=== PATIENT | male | born 1950 | race Caucasian/White ===

== ENCOUNTER 2016-12-16 03:37 | Emergency (ER) | payer MEDICARE, OTHER ==
[~2016-12-16] VITALS: Ht 167.6 cm; Wt 77.6 kg
--- NOTE | 2016-12-16 03:44 | NUR ---
PT BIBRA FROM HOME FOR HIGH BS PER EMS "GREATER THAN 500" PT AOX4 RR EVEN AND UNLABORED. NO SOB NOTED. NAD NOTED. NO NVD AT THIS TIME. PT ASYMPTOMATIC FOR HYPERGLYCEMIA. PT NOT DIAPHORETIC. PT GOWNED AND PLACED ON MONITOR WAITING FOR MD DUENAS. PER PT STATES "HE TOOK LANTUS 21 UNITS AT 9PM YESTERDAY, AND HAS STOPPED TALKING REGULAR INSULIN PER PCP"
--- NOTE | 2016-12-16 03:45 | NUR ---
ACCUCHECK RESULTS READS " HIGH" DR. CRONIN MADE AWARE.
[2016-12-16] MEDS ORDERED: IV SET PRIMARY 1 EA INFUS.SET MC ONE (03:53)
[2016-12-16] MEDS ORDERED: IV NS 0.9% 1,000 ML ONE (03:53)
[2016-12-16] MEDS ORDERED: INSULIN REGULAR, HUMAN 100 UNIT/ML 10 ML VIAL ONE (03:53)
--- NOTE | 2016-12-16 03:54 | NUR ---
IV STARTED ON LEFT FA 18G, BLOOD AND BLOOD CX COLLECTED AND SENT TO LAB.
--- NOTE | 2016-12-16 03:55 | NUR ---
XRAY AT BEDSIDE
--- NOTE | 2016-12-16 03:59 | NUR ---
WITNESSED 10 UNITS REGULAR INSULIN IVP GIVEN BY ANGELICA WAGNER RN.
[2016-12-16] MEDS ORDERED: INSULIN REGULAR, HUMAN 100 UNIT/ML 10 ML VIAL IV ONE (04:00)
[2016-12-16] MEDS ORDERED: IV NS 0.9% 1,000 ML BAG IV ONE (04:00)
[2016-12-16 04:02] LABS: BASOPHILS % (AUTO) 0.1 % (0.0-2.0); EOSINOPHILS # (AUTO) 0.1 /CMM (0.0-0.7); HEMATOCRIT 31 % (39-51); HEMOGLOBIN 10.4 g/dL (13.5-17.5); LYMPHOCYTES # (AUTO) 1.1 /CMM (0.8-4.8); MEAN CORPUSCULAR HEMOGLOBIN 29 PG (26.0-33.0); MEAN CORPUSCULAR HGB CONC 34 g/dl (31.0-36.0); MEAN CORPUSCULAR VOLUME 87 fL (80-96); MONOCYTES # (AUTO) 0.6 /CMM (0.1-1.30); MONOCYTES % (AUTO) 6.7 % (2.0-12.0); NEUTROPHILS # (AUTO) 7.2 /CMM (1.8-8.9); NEUTROPHILS % (AUTO) 80.2 % (43.0-81.0); PLATELET COUNT (AUTO) 181 /CMM (150-450); RDW COEFFICIENT OF VARIATION 12.6 (11.5-15.0); RED BLOOD CELL COUNT(AUTO) 3.56 MIL/uL (4.5-6.0); WHITE BLOOD COUNT (AUTO) 8.9 K/uL (4.3-11.0)
--- NOTE | 2016-12-16 04:16 | NUR ---
URINE COLLECTED. SENT TO LAB.
[2016-12-16 04:21] LABS: ALANINE AMINOTRANSFERASE 17 U/L (12-78); ALBUMIN 3.2 g/dL (3.4-5.0); ASPARTATE AMINOTRANSFERASE 14 U/L (15-37); BILIRUBIN,DIRECT 0.1 mg/dL (0.0-0.2); BILIRUBIN,TOTAL 0.4 mg/dL (0.2-1.0); CALCIUM, SERUM 7.9 mg/dL (8.5-10.1); CARBON DIOXIDE 30 mmol/L (21-32); CHLORIDE 88 mmol/L (98-107); CREATININE 3.9 mg/dL (0.6-1.3); POTASSIUM 3.9 mmol/L (3.5-5.1); SODIUM SERUM 127 mmol/L (136-145); TOTAL PROTEIN, SERUM 7.5 g/dL (6.4-8.2); UREA NITROGEN, BLOOD 66 mg/dL (7-18)
[2016-12-16 04:32] LABS: APPEARANCE,URINE CLEAR (CLEAR); BILIRUBIN,URINE NEGATIVE (NEGATIVE); BLOOD, URINE TRACE Ery/uL (NEGATIVE); KETONES,URINE NEGATIVE (NEGATIVE); LEUKOCYTE ESTERASE ,URINE NEGATIVE (NEGATIVE); NITRITE, URINE NEGATIVE (NEGATIVE); PH,URINE 6.5 (5.0-8.0); PROTEIN,URINE NEGATIVE (NEGATIVE); UGLUCOSE 3+ mg/dL (NEGATIVE); UROBILINOGEN,URINE 0.2 EU/dL (0.2)
[2016-12-16 04:36] LABS: COLOR,URINE STRAW (YELLOW)
[2016-12-16 04:38] LABS: BACTERIA,URINE None seen /HPF (None Seen); MUCUS,URINE Rare /LPF (None Seen); RBC,URINE 0-2 /HPF (0-2); SQUAMOUS EPITHELIAL CELL,UR None Seen /HPF (None Seen); WBC,URINE NONE SEEN /HPF (0-3)
[2016-12-16 05:09] LABS: ALKALINE PHOSPHATASE 129 U/L (46-116)
--- NOTE | 2016-12-16 05:10 | NUR ---
JERMAINE BS 369, DR. CRONIN MADE AWARE.
[2016-12-16 05:11] LABS: GLUCOSE 596 mg/dL (74-106)
--- NOTE | 2016-12-16 05:19 | NUR ---
DR. CRONIN AT BEDSIDE SPEAKING TO PT REGARDING RESULTS
--- NOTE | 2016-12-16 05:28 | NUR ---
IV removed. Catheter intact and site benign. Pressure and 4x4 applied to site. No bleeding noted. pt. ambulatory with a steady gait. Patient discharged to home in stable condition. Written and verbal after care instructions given. Patient verbalizes understanding of instruction.
[2016-12-16 05:29] VITALS: BP 120/69
== END 2016-12-16 05:29 | disposition home or self-care (01) ==
LOC: ER 03:38
DX: E11.65 Type 2 diabetes mellitus with hyperglycemia (principal); N17.9 Acute kidney failure, unspecified; E87.1 Hypo-osmolality and hyponatremia; Z79.4 Long term (current) use of insulin
CPT/HCPCS: 36415; 71010-TC; 80048-TC; 80076-TC; 81000-TC; 82010-TC; 82962-TC; 83605-TC; 85025-TC; 87040-TC; A4606; J1815; J7030; Z7610

== ENCOUNTER 2020-02-08 17:22 | Inpatient (IN) | payer MEDICARE, OTHER ==
[~2020-02-08] VITALS: Ht 167.6 cm; Wt 74.8 kg
[2020-02-08] MEDS ORDERED: ONDANSETRON HCL/PF 4 MG/2 ML VIAL IVP ONE (17:30)
[2020-02-08] MEDS ORDERED: IV NS 0.9% 500 ML BAG IV ONE (17:30)
[2020-02-08] MEDS ORDERED: ONDANSETRON HCL/PF 4 MG/2 ML VIAL ONE (17:32)
--- NOTE | 2020-02-08 17:50 | NUR ---
[id number], from home, c/o nausea vomiting and cough x 3 days. PT AAOX4, VSS. RR EVEN & UNLABORED. DENIES CP, SOB, WEAKNESS AT THIS TIME. PT SEEN & EVAL'D BY DR. RAMIREZ. MEDICATED ORDERED, PT CAITLYN WELL. WILL CONT TO MONITOR.
[2020-02-08 17:57] LABS: BASOPHILS # (AUTO) 0.1 /CMM (0.0-0.2); BASOPHILS % (AUTO) 0.8 % (0.0-2.0); EOSINOPHILS % (AUTO) 1.4 % (0.0-6.0); HEMATOCRIT 28 % (39-51); HEMOGLOBIN 9.2 g/dL (13.5-17.5); LYMPHOCYTES # (AUTO) 0.9 /CMM (0.8-4.8); LYMPHOCYTES % (AUTO) 12.2 % (20.0-44.0); MEAN CORPUSCULAR HGB CONC 33 g/dl (31.0-36.0); MEAN CORPUSCULAR VOLUME 91 fL (80-96); MONOCYTES # (AUTO) 0.7 /CMM (0.1-1.30); MONOCYTES % (AUTO) 8.7 % (2.0-12.0); NEUTROPHILS # (AUTO) 5.8 /CMM (1.8-8.9); NEUTROPHILS % (AUTO) 76.9 % (43.0-81.0); PLATELET COUNT (AUTO) 300 /CMM (150-450); RED BLOOD CELL COUNT(AUTO) 3.09 MIL/uL (4.5-6.0); WHITE BLOOD COUNT (AUTO) 7.5 K/uL (4.3-11.0)
[2020-02-08 18:05] LABS: CARBON DIOXIDE 16 mmol/L (21-32); CHLORIDE 107 mmol/L (98-107); CREATININE 6.9 mg/dL (0.6-1.3); GLUCOSE 226 mg/dL (74-106); POTASSIUM 4.7 mmol/L (3.5-5.1); SODIUM SERUM 141 mmol/L (136-145); UREA NITROGEN, BLOOD 64 mg/dL (7-18)
[2020-02-08 18:28] LABS: ALANINE AMINOTRANSFERASE 23 U/L (12-78); ALBUMIN 3.6 g/dL (3.4-5.0); ALKALINE PHOSPHATASE 73 U/L (46-116); ASPARTATE AMINOTRANSFERASE 13 U/L (15-37); BILIRUBIN,DIRECT 0.1 mg/dL (0.0-0.2); BILIRUBIN,TOTAL 0.4 mg/dL (0.2-1.0); LIPASE 136 U/L (73-393)
[2020-02-08] MEDS ORDERED: NATE60TA4 PO (19:02)
[2020-02-08] MEDS ORDERED: CALC0.253 PO (19:02)
[2020-02-08] MEDS ORDERED: LABE200T5 PO (19:02)
--- NOTE | 2020-02-08 19:21 | NUR ---
COVID SWAB SENT TO LAB
--- NOTE | 2020-02-08 20:43 | NUR ---
PT AAOX4, VSS. DENIES CP, SOB, DIZZINESS, N/V AT THIS TIME. WILL CONT TO MONITOR.
[2020-02-08 21:30] VITALS: BP 164/81
--- NOTE | 2020-02-08 21:40 | NUR ---
MISSION SYSTEMS ENGINEER ADMITTING NOTES ADMITTED PATIENT TRANSPORTED FROM ER VIA GURNEY, NO SIGNS OF ACUTE CARDIAC OR RESPIRATORY DISTRESS NOTED. ADMISSION, PHYSICAL ASSESSMENT INITIATED. PATIENT, ABLE TO WALK TO BATHROOM WITH STEADY GAIT, ORIENTED X 2-3 WITH EPISODE OF CONFUSION, UNABLE TO REMEMBER EXACT DOSE AND NAME OF HOME MEDICATIONS HE IS CURRENTLY TAKING. DENIES ANY PAIN OR DISCOMFORT, NO NAUSEA AND VOMITTING NOTED. PATIENT IS REQUESTING TO SLEEP AND REST AT THIS TIME, SKIN ASSESSMENT DONE, NOTED WITH SCAB, PHOTO TAKEN AND PLACED IN THE PATIENT'S CHART. TELE MONITOR READS SINUS 60s, IV ACCESS ON HIS RIGHT AC G#20 INTACT AND PATEN ORIENTED TO ROOM AND THE USE OF CALL LIGHT. ALL NEEDS ANTICIPATED. WILL CONTINUE TO MONITOR. AWAITING FOR MD ORDER.
[2020-02-08] MEDS ORDERED: HYDROCODONE/APAP 5/325MG TABLET PO PRN (22:30)
[2020-02-08] MEDS ORDERED: ACETAMINOPHEN 325 MG TABLET PO PRN (22:30)
[2020-02-08] MEDS ORDERED: DEXTROSE 50%-WATER 50 ML DISP.SYRIN IV PRN (22:30)
[2020-02-08] MEDS ORDERED: Z GUARD REMEDY 2 OZ OINT TP PRN (22:30)
[2020-02-08] MEDS ORDERED: ZOLPIDEM TARTRATE 5 MG TABLET PO PRN (22:30)
[2020-02-08] MEDS: IV NS 0.9% 1,000 ML IV PRN (23:52)
[2020-02-09] VITALS (7 sets, daily range): BP systolic 121–154; BP diastolic 61–85
--- NOTE | 2020-02-09 06:07 | NUR ---
HOT WIRE GLASS TUBE CUTTER NOTES ABLE TO REST AND SLEPT AT INTERVALS, TELE MONITOR READS SINUS HARSH 47 AT THIS TIME, PATIENT DENIES DISCOMFORT. NO SIGNS OF RESPIRATORY DISTRESS, SATING 97% ON ROOM AIR. SAFETY MEASURES IN PLACE, ASPIRATION PRECAUTION EMPHASIZED. WILL ENDORSE TO AM NURSE FOR CONTINUITY OF CARE.
[2020-02-09 06:43] LABS: BASOPHILS # (AUTO) 0.1 /CMM (0.0-0.2); BASOPHILS % (AUTO) 0.9 % (0.0-2.0); EOSINOPHILS % (AUTO) 2.1 % (0.0-6.0); HEMATOCRIT 25 % (39-51); HEMOGLOBIN 8.4 g/dL (13.5-17.5); LYMPHOCYTES % (AUTO) 16.9 % (20.0-44.0); MEAN CORPUSCULAR HGB CONC 33 g/dl (31.0-36.0); MEAN CORPUSCULAR VOLUME 91 fL (80-96); MONOCYTES # (AUTO) 0.7 /CMM (0.1-1.30); MONOCYTES % (AUTO) 12.4 % (2.0-12.0); NEUTROPHILS % (AUTO) 67.7 % (43.0-81.0); PLATELET COUNT (AUTO) 243 /CMM (150-450); RED BLOOD CELL COUNT(AUTO) 2.78 MIL/uL (4.5-6.0)
[2020-02-09 06:49] LABS: CHOLESTEROL 117 mg/dL (<200); HDL CHOLESTEROL 29 mg/dL (40-60); LDL 61 mg/dL (0-99); THYROID STIMULATING HORMONE 0.724 uIU/mL (0.358-3.74); TRIGLYCERIDES 139 mg/dL (30-150)
[2020-02-09 06:51] LABS: ALANINE AMINOTRANSFERASE 19 U/L (12-78); ALBUMIN 2.7 g/dL (3.4-5.0); ALKALINE PHOSPHATASE 60 U/L (46-116); ASPARTATE AMINOTRANSFERASE 11 U/L (15-37); BILIRUBIN,TOTAL 0.3 mg/dL (0.2-1.0); CALCIUM, SERUM 9.1 mg/dL (8.5-10.1); CARBON DIOXIDE 19 mmol/L (21-32); CHLORIDE 109 mmol/L (98-107); CREATININE 6.4 mg/dL (0.6-1.3); GLUCOSE 158 mg/dL (74-106); MAGNESIUM 2.2 mg/dL (1.8-2.4); POTASSIUM 4.4 mmol/L (3.5-5.1); SODIUM SERUM 142 mmol/L (136-145); TOTAL PROTEIN, SERUM 6.4 g/dL (6.4-8.2); UREA NITROGEN, BLOOD 58 mg/dL (7-18)
[2020-02-09] MEDS: NATEGLINIDE 60 MG TABLET PO SCH ×3 (07:05→17:12)
[2020-02-09] MEDS: BLOOD SUGAR DIAGNOSTIC 1 EACH STRIP IN SCH ×4 (07:07→21:57)
--- NOTE | 2020-02-09 08:00 | NUR ---
MS RN NOTES PATIENT IN BED RESTING. ALERT, ORIENTED X2. PERIPHERAL IV INTACT PATENT. SAFETY MEASURES IN PLACE. WILL CONTINUE TO MONITOR.
[2020-02-09] MEDS: CALCITRIOL 0.25 MCG CAPSULE PO SCH ×2 (08:40→17:12)
[2020-02-09] MEDS: HEPARIN SODIUM, PORCINE 5000 UNITS/1 ML VIAL SQ SCH ×2 (08:41→21:21)
[2020-02-09] MEDS: LABETALOL HCL (100MG) 100 MG TABLET PO SCH ×2 (08:48→17:00)
[2020-02-09 10:52] LABS: APPEARANCE,URINE CLEAR (CLEAR); BILIRUBIN,URINE NEGATIVE (NEGATIVE); BLOOD, URINE MODERATE Ery/uL (NEGATIVE); COLOR,URINE YELLOW (YELLOW); KETONES,URINE NEGATIVE (NEGATIVE); LEUKOCYTE ESTERASE ,URINE NEGATIVE (NEGATIVE); NITRITE, URINE NEGATIVE (NEGATIVE); PH,URINE 5.5 (5.0-8.0); PROTEIN,URINE 100 mg/dl (NEGATIVE); UGLUCOSE 500 MG/DL mg/dL (NEGATIVE); UROBILINOGEN,URINE 0.2 EU/dL (0.2)
[2020-02-09 11:27] LABS: CREATININE, URINE 69.8 MG/DL (30.0-125.0); URINE TOTAL PROTEIN 240.3 mg/dL (0-11.9)
[2020-02-09] MEDS: INSULIN REGULAR, HUMAN 100 UNIT/ML 3 ML VIAL SQ PRN ×3 (11:58→21:58)
[2020-02-09 12:37] LABS: RBC,URINE 0-2 /HPF (0-2); WBC,URINE 0-2 /HPF (0-3)
[2020-02-09 12:38] LABS: BACTERIA,URINE Rare /HPF (None Seen); SQUAMOUS EPITHELIAL CELL,UR Rare /HPF (None Seen)
[2020-02-09 13:02] LABS: EOSINOPHIL,URINE None Seen
[2020-02-09] MEDS: IV NS 0.9% 1,000 ML IV PRN (17:32)
--- NOTE | 2020-02-09 19:31 | NUR ---
MS RN NOTES PATIENT IN BED RESTING NO SOB OR ACUTE DISTRESS NOTED. ALL DUE MEDICATIONS ADMINISTERED. ALL NEED MET. ENDORSED CARE TO PM SHIFT. NO ACUTE CHANGES NOTED DURING AM SHIFT.
--- NOTE | 2020-02-09 19:50 | NUR ---
MS RN NOTES RECEIVED PATIENT IN BED RESTING. ALERT, ORIENTED X2. PERIPHERAL IV INTACT PATENT. SAFETY MEASURES IN PLACE. CALL LIGHT WITHIN EASY REACH. ALL NEEDS ANTICIPATED. WILL CONTINUE TO MONITOR ACCORDINGLY.
[2020-02-09] MEDS: INSULIN GLARGINE, 100 UNIT/ML CARTRIDGE SQ SCH (21:59)
--- NOTE | 2020-02-10 06:17 | NUR ---
MS RN NOTES ALL NEEDS ATTENDED AND MET, ABLE TO REST AND SLEPT AT INTERVALS, IV ACCESS INTACT AND PATENT. SAFETY MEASURES IN PLACE, DENIES ANY PAIN OR DISCOMFORT. WILL ENDORSE TO AM NURSE FOR CONTINUITY OF CARE.
[2020-02-10 06:25] LABS: BASOPHILS # (AUTO) 0.1 /CMM (0.0-0.2); BASOPHILS % (AUTO) 0.8 % (0.0-2.0); EOSINOPHILS % (AUTO) 2.4 % (0.0-6.0); HEMATOCRIT 26 % (39-51); HEMOGLOBIN 8.5 g/dL (13.5-17.5); LYMPHOCYTES % (AUTO) 14.3 % (20.0-44.0); MEAN CORPUSCULAR HGB CONC 33 g/dl (31.0-36.0); MEAN CORPUSCULAR VOLUME 91 fL (80-96); MONOCYTES # (AUTO) 0.6 /CMM (0.1-1.30); MONOCYTES % (AUTO) 9.5 % (2.0-12.0); NEUTROPHILS # (AUTO) 4.9 /CMM (1.8-8.9); PLATELET COUNT (AUTO) 255 /CMM (150-450); RED BLOOD CELL COUNT(AUTO) 2.85 MIL/uL (4.5-6.0); WHITE BLOOD COUNT (AUTO) 6.7 K/uL (4.3-11.0)
[2020-02-10 06:57] LABS: CREATINE KINASE, TOTAL 202 U/L (39-308); FERRITIN 39 ng/mL (8-388)
[2020-02-10 07:22] LABS: ALANINE AMINOTRANSFERASE 16 U/L (12-78); ALBUMIN 2.6 g/dL (3.4-5.0); ALKALINE PHOSPHATASE 62 U/L (46-116); ASPARTATE AMINOTRANSFERASE 14 U/L (15-37); BILIRUBIN,TOTAL 0.2 mg/dL (0.2-1.0); CALCIUM, SERUM 8.9 mg/dL (8.5-10.1); CARBON DIOXIDE 19 mmol/L (21-32); CHLORIDE 108 mmol/L (98-107); CREATININE 5.7 mg/dL (0.6-1.3); GLUCOSE 138 mg/dL (74-106); MAGNESIUM 2.1 mg/dL (1.8-2.4); PHOSPHORUS 5.6 mg/dL (2.5-4.9); POTASSIUM 4.4 mmol/L (3.5-5.1); SODIUM SERUM 141 mmol/L (136-145); TOTAL PROTEIN, SERUM 6.3 g/dL (6.4-8.2); UREA NITROGEN, BLOOD 57 mg/dL (7-18)
[2020-02-10] MEDS: NATEGLINIDE 60 MG TABLET PO SCH ×3 (07:26→16:55)
[2020-02-10] MEDS: BLOOD SUGAR DIAGNOSTIC 1 EACH STRIP IN SCH ×4 (07:26→22:03)
[2020-02-10 08:00] VITALS: BP 146/69
--- NOTE | 2020-02-10 08:00 | NUR ---
MS/RN Opening note Patient received from cage shift manager. A/O X2, vital signs within normal range for patient, denies any pain or discomfort at this time. IV fluids infusing at 75ml/hr via left forearm 22g, no sings of infiltration seen. Bed in low setting, side rails X3 in upright position. Call light within reach, will continue to monitor and ensure safety.
[2020-02-10] MEDS: CALCITRIOL 0.25 MCG CAPSULE PO SCH ×2 (08:30→16:55)
[2020-02-10] MEDS: LABETALOL HCL (100MG) 100 MG TABLET PO SCH ×2 (08:31→16:56)
[2020-02-10] MEDS: HEPARIN SODIUM, PORCINE 5000 UNITS/1 ML VIAL SQ SCH ×2 (08:34→21:25)
[2020-02-10 09:30] LABS: IRON, SERUM 27 ug/dl (50-175); TOTAL IRON BINDING CAPACITY 292 ug/dl (250-450)
[2020-02-10] MEDS: IV NS 0.9% 1,000 ML IV PRN (09:46)
--- NOTE | 2020-02-10 09:52 | NUR ---
MS/RN S/B Samuel Yeboah MONOGRAM OPERATOR Seen by MONOGRAM OPERATOR - continue with fluids at 75ml/hr and current mediations. Made aware that BUN and creatinine are elevated, stated that Dr Barillas would see patient.
[2020-02-10] MEDS: INSULIN REGULAR, HUMAN 100 UNIT/ML 3 ML VIAL SQ PRN (11:28)
--- NOTE | 2020-02-10 12:43 | NUR ---
MS/RN Blood glucose Blood sugar at noon 231, per sliding scale, four units regular insulin to be administered.
--- NOTE | 2020-02-10 15:20 | NUR ---
MS/RN S/B Dr Barillas Seen by Dr Barillas - order written for patient ot start renagel TID due to high phosphorus level (5.6)
[2020-02-10 16:00] VITALS: BP 149/75
[2020-02-10] MEDS: SEVELAMER CARBONATE 800 MG TABLET PO SCH (17:00)
--- NOTE | 2020-02-10 18:02 | NUR ---
MS/RN End note Patient remains in stable condition, all needs meet. Latest blood sugar 123, no coverage needed. Continues to deny any pain or discomfort. IV fluids infusing at 75ml/hr via left forearm 22g, no signs of infiltration. Will endorse to manufacturing supervisor 2nd shift.
[2020-02-10 18:26] VITALS: BP 149/75
[2020-02-10 20:00] VITALS: BP 149/73
[2020-02-10 20:50] VITALS: BP 149/73
[2020-02-10] MEDS: INSULIN GLARGINE, 100 UNIT/ML CARTRIDGE SQ SCH (22:06)
[2020-02-11] MEDS: ONDANSETRON HCL/PF 4 MG/2 ML VIAL IVP PRN ×2 (01:47→03:12)
[2020-02-11 01:50] VITALS: BP 161/72
[2020-02-11] MEDS ORDERED: MAG HYDROX/AL HYDROX/SIMETH 30 ML UDC PO PRN (02:00)
[2020-02-11] MEDS ORDERED: CLONIDINE HCL 0.1 MG TABLET PO PRN (02:00)
--- NOTE | 2020-02-11 02:10 | NUR ---
MS RN NOTES PATIENT COMPLAINED OF UPSET STOMACH AND HYPER ACIDITY, INFORMED AND OBTAINED ORDER FROM DR MILLER, PRN CLONIDINE 0.1 MG TAB FOR SBP>160 AND MAALOX GIVEN PRN ORDER. WILL CONTINUE TO MONITOR PATIENT.
[2020-02-11 04:01] VITALS: BP 121/54
[2020-02-11] MEDS: IV NS 0.9% 1,000 ML IV PRN (04:28)
[2020-02-11 05:07] LABS: PTH, INTACT 10 pg/mL (15-65)
[2020-02-11 06:25] LABS: BASOPHILS % (AUTO) 0.3 % (0.0-2.0); EOSINOPHILS % (AUTO) 1.9 % (0.0-6.0); HEMATOCRIT 25 % (39-51); HEMOGLOBIN 8.4 g/dL (13.5-17.5); LYMPHOCYTES # (AUTO) 1.1 /CMM (0.8-4.8); LYMPHOCYTES % (AUTO) 12.5 % (20.0-44.0); MEAN CORPUSCULAR HGB CONC 34 g/dl (31.0-36.0); MEAN CORPUSCULAR VOLUME 90 fL (80-96); MONOCYTES # (AUTO) 0.7 /CMM (0.1-1.30); MONOCYTES % (AUTO) 8.4 % (2.0-12.0); NEUTROPHILS # (AUTO) 6.5 /CMM (1.8-8.9); NEUTROPHILS % (AUTO) 76.9 % (43.0-81.0); PLATELET COUNT (AUTO) 241 /CMM (150-450); RED BLOOD CELL COUNT(AUTO) 2.81 MIL/uL (4.5-6.0); WHITE BLOOD COUNT (AUTO) 8.5 K/uL (4.3-11.0)
[2020-02-11 06:35] LABS: CALCIUM, SERUM 8.5 mg/dL (8.5-10.1); CARBON DIOXIDE 19 mmol/L (21-32); CHLORIDE 107 mmol/L (98-107); CREATININE 5.4 mg/dL (0.6-1.3); GLUCOSE 117 mg/dL (74-106); SODIUM SERUM 139 mmol/L (136-145); UREA NITROGEN, BLOOD 52 mg/dL (7-18)
[2020-02-11] MEDS: NATEGLINIDE 60 MG TABLET PO SCH ×3 (06:37→17:35)
--- NOTE | 2020-02-11 06:40 | NUR ---
MS RN NOTES ALL NEEDS ATTENDED AND MET, ABLE TO REST AND SLEPT AT INTERVALS, IV ACCESS INTACT AND PATENT. SAFETY MEASURES IN PLACE, DENIES ANY PAIN OR DISCOMFORT AT THIS TIME. WILL ENDORSE TO AM NURSE FOR CONTINUITY OF CARE.
[2020-02-11] MEDS: BLOOD SUGAR DIAGNOSTIC 1 EACH STRIP IN SCH ×3 (07:33→16:57)
--- NOTE | 2020-02-11 07:34 | NUR ---
MS RN OPENING NOTES RECEIVED PATIENT IN BED, A/O X2. PATIENT BREATHING ON ROOM AIR; BREATHING IS EVEN AND UNLABORED; NO SOB PRESENT AT THIS TIME. NO COMPLAINS OF PAIN. LFA IV ACCESS G # 22 INFUSING NS @ 75 MLS/HR. SAFETY PRECAUTIONS IN PLACE; BED IN LOW POSITION AND LOCKED, RAILS UP X2, CALL LIGHT WITHIN REACH. WILL CONTINUE TO MONITOR PATIENT.
[2020-02-11 08:00] VITALS: BP 152/82
[2020-02-11] MEDS: SEVELAMER CARBONATE 800 MG TABLET PO SCH ×3 (08:17→17:35)
[2020-02-11] MEDS: CALCITRIOL 0.25 MCG CAPSULE PO SCH ×2 (08:17→16:26)
[2020-02-11] MEDS: LABETALOL HCL (100MG) 100 MG TABLET PO SCH ×2 (08:17→16:26)
[2020-02-11] MEDS: HEPARIN SODIUM, PORCINE 5000 UNITS/1 ML VIAL SQ SCH (08:19)
[2020-02-11] MEDS: INSULIN REGULAR, HUMAN 100 UNIT/ML 3 ML VIAL SQ PRN (11:21)
[2020-02-11] MEDS ORDERED: SEVE800T7 PO (11:56)
[2020-02-11] MEDS ORDERED: INSU100V28 SQ (11:56)
[2020-02-11] MEDS ORDERED: Blood Sugar Diagnostic IN (11:56)
[2020-02-11] MEDS ORDERED: Insulin Glargine,Hum SQ (11:56)
[2020-02-11 15:07] LABS: *SPE A/G RATIO 0.9 (0.7-1.7); *SPE ALBUMIN 2.6 g/dL (2.9-4.4); *SPE ALPHA-1-GLOBULIN 0.2 g/dL (0.0-0.4); *SPE ALPHA-2-GLOBULIN 0.9 g/dL (0.4-1.0); *SPE BETA GLOBULIN 0.9 g/dL (0.7-1.3); *SPE M-SPIKE Not Observed g/dL (Not Observed); *SPEGAMMA GLOBULIN 1.1 g/dL (0.4-1.8)
[2020-02-11 16:00] VITALS: BP 135/81
--- NOTE | 2020-02-11 18:45 | NUR ---
MS RN CLOSING NOTES PATIENT IN BED, A/O X3, AWAITING 1900 PICK-UP (DISCHARGED). PATIENT BREATHING ON ROOM AIR; BREATHING IS EVEN AND UNLABORED; NO SOB PRESENT AT THIS TIME. NO COMPLAINS OF PAIN. SAFETY PRECAUTIONS IN PLACE; BED IN LOW POSITION AND LOCKED, RAILS UP X2, CALL LIGHT WITHIN REACH. WILL ENDORSE TO PAINTER INTERIOR FINISH NURSE.
--- NOTE | 2020-02-11 19:30 | NUR ---
MS RN NOTES RECEIVED RESTING COMFORTABLY ON BED WAITING FOR AMBULANCE TO TRANSPORT PATIENT,DISCHARGE TO HOME.VITAL SIGNS WITH IN NORMAL LIMITS,O2 SAT 100% ON ROOM AIR.TO REMOVE SALINE LOCK LEFT ARM UPON PLASTICS PRODUCTION MACHINE OPERATOR.
[2020-02-11 20:00] VITALS: BP 146/63
--- NOTE | 2020-02-11 20:30 | NUR ---
MS RN NOTES FEELING UPSET,HE SAID HES BEEN WAITING TO BE UNDERGROUND HEAVY EQUIPMENT OPERATOR BY AMBULANCE FOR 2-3 HOURS.CALLED [facility] AND WILL UNDERGROUND HEAVY EQUIPMENT OPERATOR PATIENT IN 15-30 MINUTES.
--- NOTE | 2020-02-11 20:53 | NUR ---
MS RN NOTES PATIENT PICKED UP BY [facility] TO HOME IN STABLE CONDITION.
== END 2020-02-11 20:55 | disposition home or self-care (01) | DRG 683 ==
LOC: ER 17:34 → TELE 20:22 → MED 02-09 11:36
PROVIDERS: ADMIT Hospitalist; ATTEND Nurse Practitioner Acute Care
DX: N17.0 Acute kidney failure with tubular necrosis (principal); E44.0 Moderate protein-calorie malnutrition; I13.10 Hypertensive heart and chronic kidney disease without heart failure, with stage 1 through stage 4 chronic kidney disease, or unspecified chronic kidney disease; E11.22 Type 2 diabetes mellitus with diabetic chronic kidney disease; E83.52 Hypercalcemia; N18.9 Chronic kidney disease, unspecified; E11.65 Type 2 diabetes mellitus with hyperglycemia; E83.39 Other disorders of phosphorus metabolism; E78.5 Hyperlipidemia, unspecified; Z79.899 Other long term (current) drug therapy; D63.8 Anemia in other chronic diseases classified elsewhere; N25.0 Renal osteodystrophy; W18.30XA Fall on same level, unspecified, initial encounter; Y93.K1 Activity, walking an animal; Y92.9 Unspecified place or not applicable; I70.0 Atherosclerosis of aorta; Z79.4 Long term (current) use of insulin; K40.90 Unilateral inguinal hernia, without obstruction or gangrene, not specified as recurrent
CPT/HCPCS: 36415; 71045-TC; 76770-TC; 80048-TC; 80053-TC; 80061-TC; 80076-TC; 81000-TC; 82550-TC; 82570-TC; 82728-TC; 82962-TC; 83540-TC; 83690-TC; 83735-TC; 83970; 84100-TC; 84155; 84155-TC; 84165; 84300-TC; 84443-TC; 84484-TC; 85025-TC; 85730-TC; 87081-TC; C9803-CS; G0378; J1644; J1815; J2405; J7030; J7040

== ENCOUNTER 2021-06-28 00:25 | Inpatient (IN) | payer MEDICARE, OTHER ==
[~2021-06-28] VITALS: Ht 167.6 cm; Wt 65.8 kg
[~2021-06-28 00:25] MED LIST: Blood Sugar Diagnostic IN; CALC0.253 PO; INSU100V28 SQ; Insulin Glargine,Hum SQ; LABE200T5 PO; NATE60TA4 PO; SEVE800T7 PO
--- NOTE | 2021-06-28 00:55 | NUR ---
Note marie in EDM - 06/28/21 at 0508 by LELO ELAYNE FROM [facility]. TO ER BED 8. AAOX2. NOT IN RESP DISTRESS BUT SATTING @ 94% ON RA.
--- NOTE | 2021-06-28 00:55 | NUR ---
ELAYNE FROM [facility]. TO ER BED 8. AAOX2. NOT IN RESP DISTRESS BUT SATTING @ 94% ON RA. NOTED EXCERTIONAL DYSNEA. PT WAS SENT BECAUSE HE HAVENT BEEN DIALIZED FOR AN UNKNOWN AMOUNT OF DAYS BECAUSE HE IS COVID POSITIVE AND HAS BEEN ON ISOLATION. PT IS POSITIVE SINCE 06/24/21. PT HAVE HD ACCESS ON R UPPER CHEST. PT IS PLACED ON O2 VIA NC @ 4LPM. AT BEDSIDE. AWAITING FOR ORDERS.
--- NOTE | 2021-06-28 01:10 | NUR ---
CALLED FACILITY AND SPOKE WITH NURSE MINISTERIO. DOES NOT KNOW HOW LONG THE PATIENT HAS BEEN DIALYSED. GAVE ME ANOTHER NUMBER TO CALL BUT NO ANSWER.
[2021-06-28 01:52] LABS: BASOPHILS % (AUTO) 0.6 % (0.0-2.0); EOSINOPHILS % (AUTO) 1.8 % (0.0-6.0); HEMATOCRIT 24 % (39-51); LYMPHOCYTES # (AUTO) 0.6 K/uL (0.8-4.8); LYMPHOCYTES % (AUTO) 11.8 % (20.0-44.0); MEAN CORPUSCULAR HGB CONC 34 g/dl (31.0-36.0); MEAN CORPUSCULAR VOLUME 90 fL (80-96); MONOCYTES # (AUTO) 0.6 K/uL (0.1-1.30); MONOCYTES % (AUTO) 11.2 % (2.0-12.0); NEUTROPHILS # (AUTO) 3.7 K/uL (1.8-8.9); NEUTROPHILS % (AUTO) 74.6 % (43.0-81.0); PLATELET COUNT (AUTO) 321 K/uL (150-450); RED BLOOD CELL COUNT(AUTO) 2.61 MIL/uL (4.5-6.0); WHITE BLOOD COUNT (AUTO) 4.9 K/uL (4.3-11.0)
[2021-06-28 02:03] LABS: CALCIUM, SERUM 7.5 mg/dL (8.5-10.1); CARBON DIOXIDE 21 mmol/L (21-32); CHLORIDE 99 mmol/L (98-107); GLUCOSE 144 mg/dL (74-106); POTASSIUM 5.9 mmol/L (3.5-5.1); SODIUM SERUM 132 mmol/L (136-145)
[2021-06-28 02:21] LABS: CREATININE 11.1 mg/dL (0.6-1.3); UREA NITROGEN, BLOOD 94 mg/dL (7-18)
[2021-06-28] MEDS ORDERED: INSULIN REGULAR, HUMAN 100 UNIT/ML 10 ML VIAL IV ONE (02:30)
[2021-06-28] MEDS ORDERED: CALCIUM CHLORIDE 1,000 MG/10 ML DISP.SYRIN IV ONE (02:30)
[2021-06-28] MEDS ORDERED: DEXTROSE 50%-WATER 50 ML DISP.SYRIN IV ONE (02:30)
[2021-06-28] MEDS ORDERED: ALBUTEROL FS 2.5 MG/3 ML VIAL.NEB NEB ONE (02:30)
[2021-06-28] MEDS ORDERED: ONDANSETRON HCL/PF 4 MG/2 ML VIAL IVP PRN (04:30)
[2021-06-28] MEDS ORDERED: MAG HYDROX/AL HYDROX/SIMETH 30 ML UDC PO PRN (04:30)
[2021-06-28] MEDS ORDERED: SODIUM POLYSTYRENE SULFONATE 15 G/60 ML BOTTLE PO ONE (04:30)
[2021-06-28] MEDS ORDERED: Z GUARD REMEDY 4 OZ OINT TP PRN (04:30)
[2021-06-28] MEDS ORDERED: MAGNESIUM HYDROXIDE 30 ML UDC PO PRN (04:30)
--- NOTE | 2021-06-28 05:04 | NUR ---
REPORT GIVEN KALEB MASON FOR NATHALY
--- NOTE | 2021-06-28 05:11 | NUR ---
PT IS BEING TRANSPORTED TO UNIT ON [facility] WITH EMT AND RN AT [facility] WITH ACLS PROTOCOL. NAD NOTED.
[2021-06-28 05:30] VITALS: BP 182/93
--- NOTE | 2021-06-28 05:30 | NUR ---
TELE/RN ADMITTING NOTE RECEIVED REPORT FROM CHALKER SOLES ALEJA. PATIENT ARRIVED TO UNIT VIA GURNEY AND 2 STAFF MEMBERS. PATIENT IS BEING ADMITTED FOR COVID AND HYPERKALEMIA. PMHX INCLUDES DM, ESRD ON HD, HTN, CHF AND PNA. PATIENT IS ALERT AND ORIENTED X 3-4. PRIMARILY SETS[place] SPEAKING BUT UNDERSTANDS SOME ROMANIAN. ABLE TO MAKE NEEDS KNOWN. DENIES PAIN AT THIS TIME. CONTINUES ON O2 4L VIA NC WITH NO S/SX OF RESPIRATORY DISTRESS NOTED. IV ACCESS TO LEFT AC #18G INTACT, PATENT AND SALINE LOCKED. RIGHT CHEST WALL HD CATH IN PLACE WITH DRESSING C,D,I. CONTINUES ON RENAL STANDING DIET WITH NO S/SX OF ASPIRATION NOTED. SKIN CHECK PERFORMED ON ADMISSION WITH SCAB NOTED TO RIGHT KNEE. PICTURE TAKEN AND PLACED IN CHART. PATIENT STATES HE IS VACCINATED AGAINST COVID X 2 DOSES OF PFIZER. PATIENT IS AMBULATORY WITH ASSIST. PATIENT ORIENTED TO ROOM, CALL LIGHT AND UNIT. CALL LIGHT WITHIN REACH. ASPIRATION, FALL AND SAFETY PRECAUTIONS MAINTAINED. WILL CONTINUE TO MONITOR.
[2021-06-28] MEDS ORDERED: DEXTROSE 50%-WATER 50 ML DISP.SYRIN IV PRN (06:00)
--- NOTE | 2021-06-28 06:50 | NUR ---
TELE/RN CLOSING NOTE PATIENT CURRENTLY SITTING AT SIDE OF BED. ALERT AND ORIENTED X 4. ABLE TO MAKE NEEDS KNOWN. DENIES PAIN AT THIS TIME. CONTINUES ON O2 4L VIA NC WITH NO S/SX OF RESPIRATORY DISTRESS NOTED. IV ACCESS TO LEFT AC #18G INTACT, PATENT AND SALINE LOCKED. RIGHT CHEST WALL HD CATH IN PLACE. CONTINUES ON RENAL STANDARD DIET WITH NO S/SX OF RESPIRATORY DISTRESS NOTED. CONSENT SIGNED FOR HEMODIALYSIS AND PLACED IN CHART. TELE MONITOR IN PLACE READING SR HR 80. CALL LIGHT WITHIN REACH. ASPIRATION, FALL AND SAFETY PRECAUTIONS MAINTAINED. WILL CONTINUE TO MONITOR.
[2021-06-28] MEDS: BLOOD SUGAR DIAGNOSTIC 1 EACH STRIP IN SCH ×4 (06:53→21:11)
--- NOTE | 2021-06-28 07:39 | NUR ---
RN OPENING NOTES PATIENT AWAKE IN BED RESTING, A/O X3-4. NO S/S OF PAIN NOTED AT THIS TIME. ON 4L OXYGEN VIA NC, NO DISTRESS OR SHORTNESS OF BREATH NOTED. IV ACCESS LAC #18G, INTACT, PATENT AND FLUSHING WELL. FALL AND SAFETY MEASURES IN PLACE, BED ALARM ON, BED IN LOW AND LOCK POSITION, CALL LIGHT AND TABLE WITHIN EASY REACH, SIDE RAILS UP X2. WILL CONTINUE TO MONITOR.
[2021-06-28 08:00] VITALS: BP 162/81
[2021-06-28] MEDS ORDERED: hydrALAZINE HCL IV 20 MG VIAL IV PRN (08:30)
[2021-06-28] MEDS ORDERED: DEXAMETHASONE SOD PHOSPHATE 10 MG/ML VIAL IV SCH (09:00)
[2021-06-28] MEDS ORDERED: CALCITRIOL 0.25 MCG CAPSULE PO SCH (09:00)
[2021-06-28] MEDS: PANTOPRAZOLE 40 MG TABLET.DR PO SCH (09:10)
[2021-06-28] MEDS: FLUTICASONE/VILANTEROL 1 EACH BLST.W.DEV IH SCH (09:14)
[2021-06-28] MEDS: SEVELAMER CARBONATE 800 MG TABLET PO SCH ×2 (12:21→17:17)
[2021-06-28] MEDS: AMLODIPINE BESYLATE 10 MG TABLET PO SCH (12:21)
[2021-06-28] MEDS ORDERED: ACET-868 PO (12:22)
[2021-06-28] MEDS ORDERED: BISA10SU11 RC (12:22)
[2021-06-28] MEDS ORDERED: TYL2T PO (12:22)
[2021-06-28] MEDS ORDERED: CHOL100043 PO (12:22)
[2021-06-28] MEDS ORDERED: LOSA50TA39 PO (12:22)
[2021-06-28] MEDS ORDERED: CALC500T63 PO (12:22)
[2021-06-28] MEDS ORDERED: NA P133E RC (12:22)
[2021-06-28] MEDS ORDERED: SEVE800T8 PO (12:22)
[2021-06-28] MEDS ORDERED: AMLO-213 PO (12:22)
[2021-06-28] MEDS ORDERED: MAGN400O6 PO (12:22)
[2021-06-28] MEDS ORDERED: HEPA50008 SQ (12:22)
[2021-06-28] MEDS: LABETALOL HCL (100MG) 100 MG TABLET PO SCH ×2 (13:23→21:11)
--- NOTE | 2021-06-28 13:30 | NUR ---
RN NOTES PATIENT HAD DIALYSIS TODAY FROM 9:00 T0 12:00, 3 HOURS, TOLERATED WELL, 2L OUTPUT. PATIENT MORNING MEDICATIONS WAS GIVEN LATE DUE TO DIALYSIS. DOCTOR SAID TO ORDER CMP POST DIALYSIS AND GIVE KAYEXELATE IF NEED AFTER RECEIVING LAB RESULTS.
[2021-06-28 14:11] LABS: BILIRUBIN,DIRECT 0.1 mg/dL (0.0-0.2); BILIRUBIN,TOTAL 0.3 mg/dL (0.2-1.0); TOTAL PROTEIN, SERUM 7.7 g/dL (6.4-8.2)
[2021-06-28 16:00] VITALS: BP 166/92
[2021-06-28 17:07] LABS: ALANINE AMINOTRANSFERASE 15 U/L (12-78); ALBUMIN 3.1 g/dL (3.4-5.0); ALKALINE PHOSPHATASE 70 U/L (46-116); ASPARTATE AMINOTRANSFERASE 19 U/L (15-37); BILIRUBIN,TOTAL 0.3 mg/dL (0.2-1.0); CALCIUM, SERUM 9.4 mg/dL (8.5-10.1); CARBON DIOXIDE 23 mmol/L (21-32); CHLORIDE 96 mmol/L (98-107); CREATININE 6.1 mg/dL (0.6-1.3); GLUCOSE 248 mg/dL (74-106); POTASSIUM 4.6 mmol/L (3.5-5.1); SODIUM SERUM 132 mmol/L (136-145); TOTAL PROTEIN, SERUM 8.7 g/dL (6.4-8.2); UREA NITROGEN, BLOOD 45 mg/dL (7-18)
[2021-06-28] MEDS: CALCITRIOL 0.25 MCG CAPSULE PO SCH (17:17)
[2021-06-28] MEDS: INSULIN REGULAR, HUMAN 100 UNIT/ML 3 ML VIAL SQ PRN (17:21)
--- NOTE | 2021-06-28 19:17 | NUR ---
RN OPENING NOTES PATIENT AWAKE IN BED RESTING, A/O X3-4. NO S/S OF PAIN NOTED AT THIS TIME. ON 4L OXYGEN VIA NC, NO DISTRESS OR SHORTNESS OF BREATH NOTED. IV ACCESS LAC #18G, INTACT, PATENT AND FLUSHING WELL. FALL AND SAFETY MEASURES IN PLACE, BED ALARM ON, BED IN LOW AND LOCK POSITION, CALL LIGHT AND TABLE WITHIN EASY REACH, SIDE RAILS UP X2. WILL ENDORSE TO CRUSHER WET GROUND MICA.
--- NOTE | 2021-06-28 19:50 | NUR ---
TELE/RN OPENING NOTE RECEIVED PATIENT RESTING IN BED. AWAKE, ALERT AND ORIENTED X 2-3. ABLE TO MAKE NEEDS KNOWN. DENIES PAIN AT THIS TIME. CONTINUES ON O2 4L VIA NC WITH NO S/SX OF RESPIRATORY DISTRESS NOTED. IV ACCESS TO LEFT AC #18G INTACT, PATENT AND SALINE LOCKED. RIGHT CHEST WALL HD CATH IN PLACE WITH DRESSING C,D,I. PATIENT IS AMBULATORY WITH STAND BY ASSIST. CALL LIGHT WITHIN REACH. ASPIRATION, FALL AND SAFETY PRECAUTIONS MAINTAINED. WILL CONTINUE TO MONITOR.
[2021-06-28 20:00] VITALS: BP 122/74
[2021-06-28] MEDS: *INSULIN REGULAR(HUMULIN R)HUM 100 UNIT/ML VIAL SQ PRN (21:21)
[2021-06-28] MEDS: ZOLPIDEM TARTRATE 5 MG TABLET PO PRN (23:05)
[2021-06-29] VITALS: BP 135/88
[2021-06-29 04:00] VITALS: BP 128/70
[2021-06-29] MEDS: BLOOD SUGAR DIAGNOSTIC 1 EACH STRIP IN SCH ×4 (06:31→22:03)
--- NOTE | 2021-06-29 06:31 | NUR ---
TELE/RN NOTE PATIENTS BLOOD SUGAR THIS AM IS 142. PATIENT REFUSING INSULIN SLIDING SCALE AT THIS TIME. STATES HE DOESN'T NEED INSULIN FOR THAT BLOOD SUGAR. EXPLAINED RISKS/BENEFITS OF REFUSING WITH PATIENT CONTINUING TO REFUSE. WILL ENDORSE TO AM SHIFT RN.
--- NOTE | 2021-06-29 06:50 | NUR ---
TELE/RN CLOSING NOTE PATIENT CURRENTLY SLEEPING IN BED. ALERT AND ORIENTED X 2-3. ABLE TO MAKE NEEDS KNOWN. DENIES PAIN AT THIS TIME. CONTINUES ON O2 2L VIA NC WITH NO S/SX OF RESPIRATORY DISTRESS NOTED. IV ACCESS TO LEFT AC #18G INTACT, PATENT AND SALINE LOCKED. RIGHT CHEST WALL HD CATH IN PLACE WITH DRESSING C,D,I. PATIENT IS AMBULATORY WITH STAND BY ASSIST. CALL LIGHT WITHIN REACH. ASPIRATION, FALL AND SAFETY PRECAUTIONS MAINTAINED. WILL ENDORSE PLAN OF CARE TO ONCOMING SHIFT.
[2021-06-29 07:28] LABS: BASOPHILS % (AUTO) 0.6 % (0.0-2.0); EOSINOPHILS % (AUTO) 0.1 % (0.0-6.0); HEMATOCRIT 22 % (39-51); HEMOGLOBIN 7.5 g/dL (13.5-17.5); LYMPHOCYTES # (AUTO) 0.7 K/uL (0.8-4.8); LYMPHOCYTES % (AUTO) 12.6 % (20.0-44.0); MEAN CORPUSCULAR HGB CONC 35 g/dl (31.0-36.0); MEAN CORPUSCULAR VOLUME 90 fL (80-96); MONOCYTES # (AUTO) 0.8 K/uL (0.1-1.30); MONOCYTES % (AUTO) 15.5 % (2.0-12.0); NEUTROPHILS # (AUTO) 3.8 K/uL (1.8-8.9); NEUTROPHILS % (AUTO) 71.2 % (43.0-81.0); PLATELET COUNT (AUTO) 312 K/uL (150-450); RED BLOOD CELL COUNT(AUTO) 2.41 MIL/uL (4.5-6.0); WHITE BLOOD COUNT (AUTO) 5.4 K/uL (4.3-11.0)
[2021-06-29 07:33] LABS: THYROID STIMULATING HORMONE 1.266 uIU/mL (0.358-3.74)
--- NOTE | 2021-06-29 07:40 | NUR ---
PATENT SOLICITOR OPENING NOTES RECEIVED PATIENT IN BED AWAKE, VERBALLY RESPONSIVE, NO SIGNS OF ACUTE DISTRESS NOTED. ON ROOM AIR, NO SIGNS OF RESPIRATORY DISTRESS NOTED, NO SOB. NO C/O PAIN OR DISCOMFORT AT THIS TIME. WITH IV ACCESS ON LAC #18G, INTACT AND PATENT, SL. RIGHT CHESTWALL PERMACATH INTACT. ISOLATION PRECAUTIONS OBSERVED. SAFETY MEASURES IN PLACE. BED LOCKED AND IN LOWEST POSITION, BED ALARM ON, SR UP X2, CALL LIGHT PLACED WITHIN EASY REACH. WILL CONTINUE TO MONITOR.
[2021-06-29 07:41] LABS: ALANINE AMINOTRANSFERASE 15 U/L (12-78); ALBUMIN 2.8 g/dL (3.4-5.0); ALKALINE PHOSPHATASE 54 U/L (46-116); ASPARTATE AMINOTRANSFERASE 14 U/L (15-37); BILIRUBIN,TOTAL 0.3 mg/dL (0.2-1.0); CALCIUM, SERUM 9.8 mg/dL (8.5-10.1); CARBON DIOXIDE 24 mmol/L (21-32); CHLORIDE 98 mmol/L (98-107); GLUCOSE 136 mg/dL (74-106); MAGNESIUM 2.5 mg/dL (1.8-2.4); PHOSPHORUS 4.3 mg/dL (2.5-4.9); POTASSIUM 4.6 mmol/L (3.5-5.1); SODIUM SERUM 133 mmol/L (136-145); TOTAL PROTEIN, SERUM 7.6 g/dL (6.4-8.2); UREA NITROGEN, BLOOD 56 mg/dL (7-18)
[2021-06-29 08:00] VITALS: BP 153/71
[2021-06-29] MEDS: SEVELAMER CARBONATE 800 MG TABLET PO SCH ×3 (08:03→17:07)
[2021-06-29] MEDS: PANTOPRAZOLE 40 MG TABLET.DR PO SCH (08:03)
[2021-06-29] MEDS ORDERED: EPOETIN ALFA (10,000 UNIT) 10,000 UNIT/ML VIAL SQ ONE (08:30)
[2021-06-29 08:52] LABS: CREATININE 7.6 mg/dL (0.6-1.3)
[2021-06-29] MEDS: FLUTICASONE/VILANTEROL 1 EACH BLST.W.DEV IH SCH (09:14)
[2021-06-29] MEDS: CALCITRIOL 0.25 MCG CAPSULE PO SCH ×2 (09:14→16:56)
[2021-06-29] MEDS: LABETALOL HCL (100MG) 100 MG TABLET PO SCH ×2 (09:15→21:08)
[2021-06-29] MEDS: AMLODIPINE BESYLATE 10 MG TABLET PO SCH (09:16)
[2021-06-29 09:48] LABS: IRON, SERUM 29 ug/dl (50-175); TOTAL IRON BINDING CAPACITY 156 ug/dl (250-450)
[2021-06-29] MEDS: INSULIN REGULAR, HUMAN 100 UNIT/ML 3 ML VIAL SQ PRN ×2 (11:25→17:03)
[2021-06-29 14:25] LABS: BAND % (MANUAL) 1 % (0.0-5.0); LYMPHOCYTES % (MANUAL) 11 % (16-48); MONOCYTES % (MANUAL) 13 % (0-11.0); NEUTROPHILS % (MANUAL) 75 (42-76)
[2021-06-29] MEDS ORDERED: EPOETIN ALFA-EPBX 10,000 UNIT/ML VIAL IV ONE (15:00)
--- NOTE | 2021-06-29 18:57 | NUR ---
DIRECTOR CRITICAL CARE CLOSING NOTES PATIENT RESTING IN BED, AWAKE, NO SIGNS OF ACUTE DISTRESS NOTED. REMAINS ON ROOM AIR, NO SIGNS OF RESPIRATORY DISTRESS NOTED, NO SOB. NO C/O PAIN OR DISCOMFORT AT THIS TIME. ALL DUE MEDS GIVEN, TOLERATED WELL. WITH IV ACCESS ON LAC #18G, INTACT AND PATENT, SL. RIGHT CHESTWALL PERMACATH INTACT, WITH DRESSING C/D/I. ON TELE MONITOR WITH CURRENT READING OF NSR @75. ISOLATION PRECAUTIONS OBSERVED. SAFETY MEASURES IN PLACE. BED LOCKED AND IN LOWEST POSITION, BED ALARM ON, SR UP X2, CALL LIGHT PLACED WITHIN EASY REACH. WILL ENDORSE TO NEXT SHIFT.
[2021-06-29 20:00] VITALS: BP 151/79
[2021-06-29 20:28] LABS: BASOPHILS % (AUTO) 0.6 % (0.0-2.0); EOSINOPHILS % (AUTO) 0.9 % (0.0-6.0); HEMATOCRIT 21 % (39-51); HEMOGLOBIN 7.3 g/dL (13.5-17.5); LYMPHOCYTES # (AUTO) 0.7 K/uL (0.8-4.8); LYMPHOCYTES % (AUTO) 11.2 % (20.0-44.0); MEAN CORPUSCULAR HGB CONC 35 g/dl (31.0-36.0); MEAN CORPUSCULAR VOLUME 89 fL (80-96); MONOCYTES % (AUTO) 16.4 % (2.0-12.0); NEUTROPHILS # (AUTO) 4.4 K/uL (1.8-8.9); NEUTROPHILS % (AUTO) 70.9 % (43.0-81.0); PLATELET COUNT (AUTO) 303 K/uL (150-450); RED BLOOD CELL COUNT(AUTO) 2.34 MIL/uL (4.5-6.0); WHITE BLOOD COUNT (AUTO) 6.1 K/uL (4.3-11.0)
[2021-06-29 21:13] LABS: EOSINOPHILS % (MANUAL) 1 % (0-4); LYMPHOCYTES % (MANUAL) 12 % (16-48); MONOCYTES % (MANUAL) 19 % (0-11.0); NEUTROPHILS % (MANUAL) 68 (42-76)
[2021-06-29] MEDS: *INSULIN REGULAR(HUMULIN R)HUM 100 UNIT/ML VIAL SQ PRN (22:05)
[2021-06-30] VITALS (8 sets, daily range): BP systolic 105–150; BP diastolic 57–79
--- NOTE | 2021-06-30 06:36 | NUR ---
ASSOCIATE EDITOR NOTES AWAKE & RESPONSIVE. NOT IN ANY DISTRESS. NO SOB NOTED. DENIES ANY PAIN OR DISCOMFORT AT THIS TIME. ON TELE SR @ 81 WITH IV-HL PATENT & INTACT. AM CARE DONE. MONITORED ACCORDINGLY. CALL LIGHT WITHIN REACH. BED IN LOWEST POSITION. SR UP X 3 WITH BED ALARM ON FOR SAFETY. WILL ENDORSE TO NEXT SHIFT.
[2021-06-30] MEDS: BLOOD SUGAR DIAGNOSTIC 1 EACH STRIP IN SCH ×4 (06:48→21:30)
[2021-06-30 06:58] LABS: BASOPHILS % (AUTO) 0.6 % (0.0-2.0); EOSINOPHILS % (AUTO) 1.6 % (0.0-6.0); HEMATOCRIT 21 % (39-51); HEMOGLOBIN 7.1 g/dL (13.5-17.5); LYMPHOCYTES # (AUTO) 0.7 K/uL (0.8-4.8); LYMPHOCYTES % (AUTO) 12.7 % (20.0-44.0); MEAN CORPUSCULAR HGB CONC 35 g/dl (31.0-36.0); MEAN CORPUSCULAR VOLUME 90 fL (80-96); MONOCYTES # (AUTO) 0.9 K/uL (0.1-1.30); MONOCYTES % (AUTO) 16.5 % (2.0-12.0); NEUTROPHILS # (AUTO) 3.7 K/uL (1.8-8.9); NEUTROPHILS % (AUTO) 68.6 % (43.0-81.0); PLATELET COUNT (AUTO) 310 K/uL (150-450); RED BLOOD CELL COUNT(AUTO) 2.28 MIL/uL (4.5-6.0); WHITE BLOOD COUNT (AUTO) 5.4 K/uL (4.3-11.0)
[2021-06-30 07:06] LABS: CARBON DIOXIDE 24 mmol/L (21-32); CHLORIDE 97 mmol/L (98-107); GLUCOSE 88 mg/dL (74-106); MAGNESIUM 2.3 mg/dL (1.8-2.4); PHOSPHORUS 5.2 mg/dL (2.5-4.9); POTASSIUM 4.9 mmol/L (3.5-5.1); SODIUM SERUM 133 mmol/L (136-145); UREA NITROGEN, BLOOD 69 mg/dL (7-18)
--- NOTE | 2021-06-30 07:10 | NUR ---
ms rn received on bed, awake,alert,oriented x4,not in any form of distress, hd patient w/c is scheduled today, all needs attended.
[2021-06-30 07:17] LABS: CREATININE 9.1 mg/dL (0.6-1.3)
[2021-06-30] MEDS: CALCITRIOL 0.25 MCG CAPSULE PO SCH ×2 (08:52→18:02)
[2021-06-30] MEDS: SEVELAMER CARBONATE 800 MG TABLET PO SCH ×3 (08:52→18:02)
[2021-06-30] MEDS: LABETALOL HCL (100MG) 100 MG TABLET PO SCH ×2 (08:52→21:30)
[2021-06-30] MEDS: PANTOPRAZOLE 40 MG TABLET.DR PO SCH (08:52)
[2021-06-30] MEDS: AMLODIPINE BESYLATE 10 MG TABLET PO SCH (08:53)
[2021-06-30] MEDS: FLUTICASONE/VILANTEROL 1 EACH BLST.W.DEV IH SCH (08:53)
--- NOTE | 2021-06-30 09:30 | NUR ---
ms rooney breakfast served,due meds given.tolerated well.
[2021-06-30] MEDS ORDERED: EPOETIN ALFA (10,000 UNIT) 10,000 UNIT/ML VIAL IV ONE (10:00)
--- NOTE | 2021-06-30 11:00 | NUR ---
ms rn was seen by dr. capellan, will have hd today.
[2021-06-30] MEDS: INSULIN REGULAR, HUMAN 100 UNIT/ML 3 ML VIAL SQ PRN ×2 (12:50→18:52)
--- NOTE | 2021-06-30 16:00 | NUR ---
ms nevin hd finished w/ i unit of prbc given thru hd, tolerated well.
[2021-06-30 17:42] LABS: EOSINOPHILS % (MANUAL) 1 % (0-4); LYMPHOCYTES % (MANUAL) 15 % (16-48); MONOCYTES % (MANUAL) 15 % (0-11.0); NEUTROPHILS % (MANUAL) 69 (42-76)
--- NOTE | 2021-06-30 19:07 | NUR ---
ms rooney bs - 150 - 2 units insulin sq.
--- NOTE | 2021-06-30 19:35 | NUR ---
RN NOTES Received patient awake on his bed, a/ox3, Divehi speaking, SR on tele monitor HR-85, denies pain, no SOB, call light within reach, siderailsupx2, will continue to monitor
[2021-06-30] MEDS: *INSULIN REGULAR(HUMULIN R)HUM 100 UNIT/ML VIAL SQ PRN (21:46)
[2021-07-01] VITALS: BP 148/70
[2021-07-01 04:00] VITALS: BP 146/67
--- NOTE | 2021-07-01 07:00 | NUR ---
RN NOTES awake, morning care rendered, denies pain ,no SOB, call light within reach, siderailsupx2, pt. needs attended
--- NOTE | 2021-07-01 07:30 | NUR ---
RN OPENING NOTES RECEIVED PATIENT ON BED AWAKE AND A/O X3. ON AND OFF O2 AT 2LPM VIA NASAL CANNULA TOLERATING WELL. NO SOB NOTED. NOT IN DISTRESS. WITH NO COMPLAINTS OF PAIN OR DISCOMFORT AT THIS TIME. WITH IV ACCESS AT LEFT G2 Addendum: 07/01/21 at 1044 by MAYELIN JAVIER RN ERROR
--- NOTE | 2021-07-01 07:30 | NUR ---
RN OPENING NOTES RECEIVED PATIENT ON BED AWAKE AND A/O X3. ON AND OFF O2 AT 2LPM VIA NASAL CANNULA TOLERATING WELL. NO SOB NOTED. NOT IN DISTRESS. WITH NO COMPLAINTS OF PAIN OR DISCOMFORT AT THIS TIME. WITH IV ACCESS AT LEFT AC G18 SALINE LOCKED, PATENT AND INTACT. SAFETY MEASURES IN PLACED. CALL LIGHT WITHIN REACH. BED ON LOWEST LOCKED POSITION, SIDE RAILS UP X2. WILL CONTINUE TO MONITOR.
[2021-07-01] MEDS: BLOOD SUGAR DIAGNOSTIC 1 EACH STRIP IN SCH ×4 (07:37→21:48)
[2021-07-01 08:00] VITALS: BP 135/88
[2021-07-01] MEDS: SEVELAMER CARBONATE 800 MG TABLET PO SCH ×3 (08:39→17:09)
[2021-07-01] MEDS: FLUTICASONE/VILANTEROL 1 EACH BLST.W.DEV IH SCH (08:39)
[2021-07-01] MEDS: AMLODIPINE BESYLATE 10 MG TABLET PO SCH (08:39)
[2021-07-01] MEDS: LABETALOL HCL (100MG) 100 MG TABLET PO SCH ×2 (08:40→21:02)
[2021-07-01] MEDS: CALCITRIOL 0.25 MCG CAPSULE PO SCH ×2 (08:40→17:09)
[2021-07-01] MEDS: PANTOPRAZOLE 40 MG TABLET.DR PO SCH (08:40)
[2021-07-01 09:08] LABS: ALBUMIN 2.8 g/dL (3.4-5.0); ALKALINE PHOSPHATASE 54 U/L (46-116); ASPARTATE AMINOTRANSFERASE 13 U/L (15-37); BILIRUBIN,TOTAL 0.3 mg/dL (0.2-1.0); CALCIUM, SERUM 8.9 mg/dL (8.5-10.1); CARBON DIOXIDE 25 mmol/L (21-32); CHLORIDE 98 mmol/L (98-107); CREATININE 6.2 mg/dL (0.6-1.3); GLUCOSE 89 mg/dL (74-106); POTASSIUM 4.4 mmol/L (3.5-5.1); SODIUM SERUM 132 mmol/L (136-145); TOTAL PROTEIN, SERUM 7.3 g/dL (6.4-8.2); UREA NITROGEN, BLOOD 45 mg/dL (7-18)
[2021-07-01 09:09] LABS: BASOPHILS % (AUTO) 0.7 % (0.0-2.0); EOSINOPHILS % (AUTO) 1.8 % (0.0-6.0); HEMATOCRIT 24 % (39-51); HEMOGLOBIN 8.3 g/dL (13.5-17.5); LYMPHOCYTES # (AUTO) 0.7 K/uL (0.8-4.8); MEAN CORPUSCULAR HGB CONC 34 g/dl (31.0-36.0); MEAN CORPUSCULAR VOLUME 89 fL (80-96); MONOCYTES # (AUTO) 0.9 K/uL (0.1-1.30); MONOCYTES % (AUTO) 18.5 % (2.0-12.0); NEUTROPHILS # (AUTO) 3.2 K/uL (1.8-8.9); PLATELET COUNT (AUTO) 296 K/uL (150-450); RED BLOOD CELL COUNT(AUTO) 2.74 MIL/uL (4.5-6.0)
[2021-07-01 09:38] LABS: ALANINE AMINOTRANSFERASE 13 U/L (12-78)
[2021-07-01 11:34] LABS: BAND % (MANUAL) 1 % (0.0-5.0); LYMPHOCYTES % (MANUAL) 14 % (16-48); MONOCYTES % (MANUAL) 15 % (0-11.0); NEUTROPHILS % (MANUAL) 68 (42-76)
[2021-07-01 11:35] LABS: EOSINOPHILS % (MANUAL) 2 % (0-4)
[2021-07-01] MEDS: INSULIN REGULAR, HUMAN 100 UNIT/ML 3 ML VIAL SQ PRN (11:59)
--- NOTE | 2021-07-01 18:58 | NUR ---
WATER PROJECT ENGINEER OPENING NOTES PATIENT ON BED RESTING AND A/O X3. ON AND OFF O2 AT 2LPM VIA NASAL CANNULA TOLERATING WELL. NO SOB NOTED. NOT IN DISTRESS. WITH NO COMPLAINTS OF PAIN OR DISCOMFORT AT THIS TIME. ON TELE MONITOR CURRENTLY SINUS RHYTHM AT 74BPM. WITH IV ACCESS AT LEFT AC G18 SALINE LOCKED, PATENT AND INTACT. SAFETY MEASURES IN PLACED. CALL LIGHT WITHIN REACH. BED ON LOWEST LOCKED POSITION, SIDE RAILS UP X2. WILL ENDORSE TO NEXT SHIFT FOR NATHALY.
--- NOTE | 2021-07-01 19:21 | NUR ---
WEB APPLICATIONS ARCHITECT CLOSING NOTES PATIENT RESTING ON BED AND A/O X3. ON ON AND OFF O2 AT 2LPM VIA NASAL CANNULA TOLERATING WELL.. NO SOB NOTED. NOT IN DISTRESS. WITH NO COMPLAINTS OF PAIN OR DISCOMFORT AT THIS TIME. WITH IV ACCESS AT LEFT AC G18 SALINE LOCKED, PATENT AND INTACT. ON TELE MONITOR CURRENTLY READING SINUS RHYTHM AT 74BPM. SAFETY MEASURES IN PLACED. CALL LIGHT WITHIN REACH. BED ON LOWEST LOCKED POSITION, SIDE RAILS UP X2. WILL ENDORSE TO NEXT SHIFT FOR NATHALY.
--- NOTE | 2021-07-01 19:55 | NUR ---
DIVISION MANAGER OPENING NOTE PATIENT SLEEPING IN BED, EASILY AWAKENED, ALERT/ORIENTED X 3, PT PRIMARILY INDIAN SPEAKING. PT DENIES PAIN OR DISCOMFORT AT THIS TIME. PT STABLE ON RA, NO S/S OF DISTRESS OR SOB NOTED, BREATHING EVEN AND UNLABORED, SPO2: 95%, SUPPLEMENTAL OXYGEN PRN. PT ON EXTERNAL MARINE FUEL DOCK ATTENDANT READING SINUS RHYTHM, HR: 69. IV ACCESS ON LEFT AC #18G INTACT AND SALINE LOCKED. SAFETY MEASURES IN PLACE: CALL LIGHT WITHIN REACH, SIDE RAILS UP X 2, BED LOCKED IN LOW POSITION. WILL CONTINUE TO MONITOR PATIENT
[2021-07-01 20:00] VITALS: BP 134/71
[2021-07-01] MEDS: *INSULIN REGULAR(HUMULIN R)HUM 100 UNIT/ML VIAL SQ PRN (22:04)
[2021-07-02] VITALS: BP 130/69
[2021-07-02 04:00] VITALS: BP 153/72
[2021-07-02] MEDS: BLOOD SUGAR DIAGNOSTIC 1 EACH STRIP IN SCH ×4 (06:50→21:59)
--- NOTE | 2021-07-02 07:31 | NUR ---
TELE CLOSING NOTE PATIENT AWAKE IN BED, ALERT/ORIENTED X 3, NO SIGNIFICANT CHANGES THROUGHOUT SHIFT. PT DENIES PAIN OR DISCOMFORT AT THIS TIME. PT STABLE ON RA, NO S/S OF DISTRESS OR SOB NOTED, BREATHING EVEN AND UNLABORED, SUPPLEMENTAL OXYGEN PRN. PT ON EXTERNAL SOCIAL SERVICES READING SINUS RHYTHM WITH PVC'S. MEDICATIONS GIVEN ORDERED, PT NEEDS MET THROUGHOUT SHIFT. SAFETY MEASURES IN PLACE: CALL LIGHT WITHIN REACH, SIDE RAILS UP X 2, BED LOCKED IN LOW POSITION. ENDORSED TO DAY SHIFT NURSE FOR CONTINUITY OF CARE
[2021-07-02] MEDS: SEVELAMER CARBONATE 800 MG TABLET PO SCH ×3 (07:56→17:15)
[2021-07-02] MEDS: PANTOPRAZOLE 40 MG TABLET.DR PO SCH (07:56)
[2021-07-02 08:00] VITALS: BP 145/74
[2021-07-02 08:11] LABS: ALANINE AMINOTRANSFERASE 11 U/L (12-78); ALBUMIN 2.6 g/dL (3.4-5.0); ALKALINE PHOSPHATASE 50 U/L (46-116); ASPARTATE AMINOTRANSFERASE 13 U/L (15-37); BILIRUBIN,TOTAL 0.3 mg/dL (0.2-1.0); CARBON DIOXIDE 22 mmol/L (21-32); CHLORIDE 96 mmol/L (98-107); GLUCOSE 90 mg/dL (74-106); POTASSIUM 4.6 mmol/L (3.5-5.1); SODIUM SERUM 128 mmol/L (136-145); TOTAL PROTEIN, SERUM 6.9 g/dL (6.4-8.2); UREA NITROGEN, BLOOD 63 mg/dL (7-18)
[2021-07-02 08:13] LABS: BASOPHILS # (AUTO) 0.1 K/uL (0.0-0.2); BASOPHILS % (AUTO) 1.1 % (0.0-2.0); EOSINOPHILS % (AUTO) 2.2 % (0.0-6.0); HEMATOCRIT 23 % (39-51); HEMOGLOBIN 7.6 g/dL (13.5-17.5); LYMPHOCYTES # (AUTO) 0.7 K/uL (0.8-4.8); LYMPHOCYTES % (AUTO) 13.8 % (20.0-44.0); MEAN CORPUSCULAR HGB CONC 34 g/dl (31.0-36.0); MEAN CORPUSCULAR VOLUME 89 fL (80-96); MONOCYTES # (AUTO) 0.9 K/uL (0.1-1.30); MONOCYTES % (AUTO) 19.4 % (2.0-12.0); NEUTROPHILS # (AUTO) 3.1 K/uL (1.8-8.9); NEUTROPHILS % (AUTO) 63.5 % (43.0-81.0); PLATELET COUNT (AUTO) 266 K/uL (150-450); RED BLOOD CELL COUNT(AUTO) 2.54 MIL/uL (4.5-6.0); WHITE BLOOD COUNT (AUTO) 4.8 K/uL (4.3-11.0)
--- NOTE | 2021-07-02 08:25 | NUR ---
RN Opening Note Patient received in bed, does not appears distress, able to responds all stimuli. Skin is warm to touch, keep clean/dry, intact IV site. Respiratory even and unlabored on room air. Kept elevated HOB for ensure air/aspiration precaution and remains lower position of the bed. call light within reach, will continue to monitor.
[2021-07-02] MEDS: AMLODIPINE BESYLATE 10 MG TABLET PO SCH (08:56)
--- NOTE | 2021-07-02 08:56 | NUR ---
Patient having HD, will hold Norvasc.
[2021-07-02] MEDS: LABETALOL HCL (100MG) 100 MG TABLET PO SCH ×2 (08:58→21:00)
[2021-07-02] MEDS: CALCITRIOL 0.25 MCG CAPSULE PO SCH ×2 (09:03→17:15)
[2021-07-02] MEDS: FLUTICASONE/VILANTEROL 1 EACH BLST.W.DEV IH SCH (09:04)
[2021-07-02] MEDS: INSULIN REGULAR, HUMAN 100 UNIT/ML 3 ML VIAL SQ PRN ×2 (11:47→17:14)
[2021-07-02 12:00] VITALS: BP 125/66
[2021-07-02] MEDS ORDERED: EPOETIN ALFA (10,000 UNIT) 10,000 UNIT/ML VIAL IV ONE ×2 (12:30→15:00)
[2021-07-02 16:00] VITALS: BP 160/76
--- NOTE | 2021-07-02 18:00 | NUR ---
RN Closing Note Patient is resting in bed, no distress observed. Respiratory even and unlabored on room air. Skin is warm to touch, keep clean/dry, intact IV site. Patient done HD and 2Ls out put. Kept elevated HOB for ensure airway and aspiration precaution, Also lower position of the bed for safety. Call light within reach, all needs met. will endorse ict help desk technician.
--- NOTE | 2021-07-02 19:35 | NUR ---
RN opening notes Received Pt from morning nurse. Pt is resting in bed comfortably. Pt is alert and orientedX2 with episode of confusion. Respiration is normal in room air. No SOB. No S/S of distress noted. IV site at LAC# 18 is clean, intact and SL. RCW HD cath is clean and intact. Tele monitor showed SR hr at 81. Safety precautions is maintained. Bed at low position, brakes locked, side rails upX3, hob elevated, urinal at the bedside and call light is within reach.
[2021-07-02 20:00] VITALS: BP 160/83
[2021-07-02] MEDS: *INSULIN REGULAR(HUMULIN R)HUM 100 UNIT/ML VIAL SQ PRN (22:03)
[2021-07-03] VITALS: BP 159/79
[2021-07-03] MEDS: ZOLPIDEM TARTRATE 5 MG TABLET PO PRN (02:01)
--- NOTE | 2021-07-03 02:02 | NUR ---
RN notes Pt is requesting a sleeping pill. Administered ambien 5 mg/ po/prn as ordered for sleeping. safety precautions is maintained.
[2021-07-03 04:00] VITALS: BP 155/68
--- NOTE | 2021-07-03 06:30 | NUR ---
RN closing notes Pt is resting in bed comfortably. Pt is alert and orientedX2 with episode of confusion. Respiration is normal in room air. No SOB. No S/S of distress noted. IV site at LAC# 18 is clean, intact and SL. RCW HD cath is clean and intact. Tele monitor showed SR hr at 82. Routine meds were given as ordered. Kept Pt clean, dry and comfortable. Safety precautions is maintained. Bed at low position, brakes locked, side rails upX3, hob elevated, urinal at the bedside and call light is within reach. Will endorse to am nurse for NATHALY.
[2021-07-03] MEDS: BLOOD SUGAR DIAGNOSTIC 1 EACH STRIP IN SCH ×4 (06:31→21:06)
[2021-07-03] MEDS: ACETAMINOPHEN 325 MG TABLET PO PRN ×2 (06:35→21:07)
[2021-07-03 07:20] LABS: EOSINOPHILS % (AUTO) 0.7 % (0.0-6.0); HEMATOCRIT 26 % (39-51); HEMOGLOBIN 8.6 g/dL (13.5-17.5); LYMPHOCYTES # (AUTO) 0.6 K/uL (0.8-4.8); MEAN CORPUSCULAR HGB CONC 33 g/dl (31.0-36.0); MEAN CORPUSCULAR VOLUME 94 fL (80-96); MONOCYTES # (AUTO) 1.1 K/uL (0.1-1.30); NEUTROPHILS # (AUTO) 2.7 K/uL (1.8-8.9); NEUTROPHILS % (AUTO) 61.3 % (43.0-81.0); PLATELET COUNT (AUTO) 218 K/uL (150-450); WHITE BLOOD COUNT (AUTO) 4.5 K/uL (4.3-11.0)
[2021-07-03 07:28] LABS: ALANINE AMINOTRANSFERASE 11 U/L (12-78); ALBUMIN 2.8 g/dL (3.4-5.0); ALKALINE PHOSPHATASE 57 U/L (46-116); ASPARTATE AMINOTRANSFERASE 15 U/L (15-37); BILIRUBIN,TOTAL 0.3 mg/dL (0.2-1.0); CARBON DIOXIDE 21 mmol/L (21-32); CHLORIDE 97 mmol/L (98-107); CREATININE 6.3 mg/dL (0.6-1.3); GLUCOSE 93 mg/dL (74-106); MAGNESIUM 2.2 mg/dL (1.8-2.4); PHOSPHORUS 3.1 mg/dL (2.5-4.9); POTASSIUM 4.8 mmol/L (3.5-5.1); SODIUM SERUM 130 mmol/L (136-145); TOTAL PROTEIN, SERUM 7.5 g/dL (6.4-8.2); UREA NITROGEN, BLOOD 42 mg/dL (7-18)
--- NOTE | 2021-07-03 07:32 | NUR ---
RN NOTES PATIENT SLEEPING IN BED, ABLE TO BE AWAKENED. INDONESIAN-SPEAKING. A/O X1-2. ON ROOM AIR, NO RESPIRATORY DISTRESS. CURRENTLY SITTING AT BEDSIDE EATING BREAKFAST.
[2021-07-03 08:00] VITALS: BP 133/62
[2021-07-03] MEDS: PANTOPRAZOLE 40 MG TABLET.DR PO SCH (08:43)
[2021-07-03] MEDS: SEVELAMER CARBONATE 800 MG TABLET PO SCH ×3 (08:44→17:01)
[2021-07-03] MEDS: LABETALOL HCL (100MG) 100 MG TABLET PO SCH ×2 (08:44→21:07)
[2021-07-03] MEDS: CALCITRIOL 0.25 MCG CAPSULE PO SCH ×2 (08:44→16:51)
[2021-07-03] MEDS: AMLODIPINE BESYLATE 10 MG TABLET PO SCH (08:44)
[2021-07-03] MEDS: FLUTICASONE/VILANTEROL 1 EACH BLST.W.DEV IH SCH (08:46)
[2021-07-03 12:00] VITALS: BP 101/51
[2021-07-03 16:00] VITALS: BP 129/58
[2021-07-03] MEDS: INSULIN REGULAR, HUMAN 100 UNIT/ML 3 ML VIAL SQ PRN (16:48)
--- NOTE | 2021-07-03 19:20 | NUR ---
RN NOTES PATIENT IN BED RESTING, ATE DINNER, NOT IN ACUTE DISTRESS. CONTACT PATIENT'S ON BEHALF OF PATIENT, ABLE TO COMMUNICATE W/ FAMILY. AMBULATES W/ STEADY GAIT. SAFETY MEASURES MAINTAINED. ENDORSED TO INDIAN BLANKET WEAVER RN FOR NATHALY.
--- NOTE | 2021-07-03 19:30 | NUR ---
TELE/RN OPENING NOTE RECEIVED PATIENT SITTING AT SIDE OF BED. ALERT AND ORIENTED X 2. PRIMARILY STATELESS SPEAKING. ABLE TO MAKE NEEDS KNOWN. DENIES PAIN AT THIS TIME. CONTINUES ON ROOM AIR WITH NO S/SX OF RESPIRATORY DISTRESS NOTED. IV ACCESS TO LEFT AC #18G INTACT, PATENT AND SALINE LOCKED. RIGHT CHEST WALL HD CATH IN PLACE WITH DRESSING C/D/I. TELE MONITOR IN PLACE WITH CURRENT READING SR HR 75. PATIENT IS AMBULATORY WITH ASSIST. CALL LIGHT WITHIN REACH. ASPIRATION, FALL AND SAFETY PRECAUTIONS MAINTAINED. WILL CONTINUE TO MONITOR.
[2021-07-03 20:00] VITALS: BP 135/63
[2021-07-04] VITALS: BP 98/56
[2021-07-04 04:00] VITALS: BP 136/66
--- NOTE | 2021-07-04 06:30 | NUR ---
TELE/RN CLOSING NOTE PATIENT CURRENTLY RESTING IN BED. ALERT AND ORIENTED X 2. PRIMARILY LITHUANIAN SPEAKING. ABLE TO MAKE NEEDS KNOWN. DENIES PAIN AT THIS TIME. CONTINUES ON ROOM AIR WITH NO S/SX OF RESPIRATORY DISTRESS NOTED. IV ACCESS TO LEFT AC #18G INTACT, PATENT AND SALINE LOCKED. RIGHT CHEST WALL HD CATH IN PLACE WITH DRESSING C/D/I. TELE MONITOR IN PLACE WITH CURRENT READING SR. PATIENT IS AMBULATORY WITH ASSIST. CALL LIGHT WITHIN REACH. ASPIRATION, FALL AND SAFETY PRECAUTIONS MAINTAINED. WILL ENDORSE PLAN OF CARE TO ONCOMING SHIFT.
--- NOTE | 2021-07-04 07:14 | NUR ---
TELE/RN OPENING NOTE RECEIVED PATIENT RESTING IN BED.ALERT AND ORIENTED X 2. PRIMARILY KYRGYZ SPEAKING. ABLE TO MAKE NEEDS KNOWN. DENIES PAIN AT THIS TIME. PATIENT IS BREATHING EVENLY AND NONLABORED CONTINUES ON ROOM AIR WITH NO S/SX OF RESPIRATORY DISTRESS NOTED. IV ACCESS TO LEFT AC #18G INTACT, PATENT AND SALINE LOCKED. RIGHT CHEST WALL HD CATH IN PLACE WITH DRESSING C/D/I. TELE MONITOR IN PLACE PATIENT IS AMBULATORY WITH ASSIST. CALL LIGHT WITHIN REACH. ASPIRATION, FALL AND SAFETY PRECAUTIONS MAINTAINED. WILL CONTINUE TO MONITOR.
[2021-07-04 07:33] LABS: ALANINE AMINOTRANSFERASE 15 U/L (12-78); ALBUMIN 2.8 g/dL (3.4-5.0); ALKALINE PHOSPHATASE 50 U/L (46-116); ASPARTATE AMINOTRANSFERASE 18 U/L (15-37); BILIRUBIN,TOTAL 0.3 mg/dL (0.2-1.0); CALCIUM, SERUM 8.1 mg/dL (8.5-10.1); CHLORIDE 97 mmol/L (98-107); GLUCOSE 82 mg/dL (74-106); POTASSIUM 5.1 mmol/L (3.5-5.1); SODIUM SERUM 131 mmol/L (136-145); TOTAL PROTEIN, SERUM 7.4 g/dL (6.4-8.2); UREA NITROGEN, BLOOD 55 mg/dL (7-18)
[2021-07-04] MEDS: BLOOD SUGAR DIAGNOSTIC 1 EACH STRIP IN SCH ×2 (07:34→11:15)
[2021-07-04 07:40] LABS: BASOPHILS % (AUTO) 1.1 % (0.0-2.0); EOSINOPHILS % (AUTO) 0.9 % (0.0-6.0); HEMATOCRIT 25 % (39-51); HEMOGLOBIN 8.4 g/dL (13.5-17.5); LYMPHOCYTES # (AUTO) 0.6 K/uL (0.8-4.8); LYMPHOCYTES % (AUTO) 15.5 % (20.0-44.0); MEAN CORPUSCULAR HGB CONC 34 g/dl (31.0-36.0); MEAN CORPUSCULAR VOLUME 91 fL (80-96); MONOCYTES # (AUTO) 1.1 K/uL (0.1-1.30); MONOCYTES % (AUTO) 28.3 % (2.0-12.0); NEUTROPHILS # (AUTO) 2.1 K/uL (1.8-8.9); NEUTROPHILS % (AUTO) 54.2 % (43.0-81.0); PLATELET COUNT (AUTO) 250 K/uL (150-450); RED BLOOD CELL COUNT(AUTO) 2.74 MIL/uL (4.5-6.0); WHITE BLOOD COUNT (AUTO) 3.8 K/uL (4.3-11.0)
[2021-07-04 07:45] LABS: CARBON DIOXIDE 22 mmol/L (21-32)
[2021-07-04 07:48] LABS: CREATININE 8.3 mg/dL (0.6-1.3)
[2021-07-04 08:00] VITALS: BP 152/72
[2021-07-04] MEDS: AMLODIPINE BESYLATE 10 MG TABLET PO SCH (08:10)
[2021-07-04] MEDS: PANTOPRAZOLE 40 MG TABLET.DR PO SCH (08:10)
[2021-07-04] MEDS: FLUTICASONE/VILANTEROL 1 EACH BLST.W.DEV IH SCH (08:10)
[2021-07-04] MEDS: CALCITRIOL 0.25 MCG CAPSULE PO SCH (08:10)
[2021-07-04] MEDS: SEVELAMER CARBONATE 800 MG TABLET PO SCH ×2 (08:10→12:05)
[2021-07-04] MEDS: LABETALOL HCL (100MG) 100 MG TABLET PO SCH (08:11)
[2021-07-04] MEDS ORDERED: LABE100T15 PO (08:37)
[2021-07-04] MEDS ORDERED: CALC0.258 PO (08:37)
[2021-07-04] MEDS ORDERED: FLUT1BLS IH (08:37)
[2021-07-04] MEDS: INSULIN REGULAR, HUMAN 100 UNIT/ML 3 ML VIAL SQ PRN (11:15)
[2021-07-04 12:00] VITALS: BP 109/70
--- NOTE | 2021-07-04 12:51 | NUR ---
RN NOTE GAVE REPORT TO @ [facility] FOR CONTINUITY OF CARE
--- NOTE | 2021-07-04 13:15 | NUR ---
RN NOTE CALLED SON LEFT MESSAGE IN REGARDS TO TRANSFER
--- NOTE | 2021-07-04 15:31 | NUR ---
CONTROL PANEL OPERATOR NOTE RECEIVED DISCHARGE ORDER. PATIENT IS A/O X1. PATIENT IS BREATHING EVENLY AND NONLABORED ON ROOM AIR. PATIENT DENIES PAIN OR DISCOMFORT AT THIS TIME. STATISTICIAN WERE GIVEN WRITTEN DISCHARGE INSTRUCTIONS. REPORT WAS GIVEN TO SHELBY @ [facility]. PATIENT VERBALIZED UNDERSTANDING. SON CALLED X 2 LEFT MESSAGE. IV ACCESS WAS REMOVED PRESSURE DRESSING APPLIED. NO BLEEDING NOTED. ALL BELONGINGS TAKEN WITH RESIDENT. BELONGINGS FORM SIGNED. PATIENT LEFT IN STABLE CONDITION 2 STATISTICIAN PRESENT.
== END 2021-07-04 15:53 | DRG 682 ==
LOC: ER 00:27 → TRANSITION 04:40 → TELE2 05:06
PROVIDERS: ADMIT Internal Medicine; ATTEND Internal Medicine
PROC: 5A1D70Z Performance of Urinary Filtration, Intermittent, Less than 6 Hours Per Day (ICD-10-PCS; principal; 2021-06-28)
DX: I12.0 Hypertensive chronic kidney disease with stage 5 chronic kidney disease or end stage renal disease (principal); U07.1 COVID-19; N18.6 End stage renal disease; E87.1 Hypo-osmolality and hyponatremia; E11.22 Type 2 diabetes mellitus with diabetic chronic kidney disease; E87.5 Hyperkalemia; Z79.4 Long term (current) use of insulin; Z79.899 Other long term (current) drug therapy; Z99.2 Dependence on renal dialysis; Z87.01 Personal history of pneumonia (recurrent); M85.9 Disorder of bone density and structure, unspecified; I16.0 Hypertensive urgency; D63.8 Anemia in other chronic diseases classified elsewhere; Z82.49 Family history of ischemic heart disease and other diseases of the circulatory system; Z83.3 Family history of diabetes mellitus; Z74.09 Other reduced mobility
CPT/HCPCS: 36415; 71045-TC; 80048-TC; 80053-TC; 80076-TC; 82962-TC; 83540-TC; 83605-TC; 83735-TC; 84100-TC; 84443-TC; 84484-TC; 85025-TC; 86706; 86850-TC; 87040-TC; 87081-TC; 87340; 90935-TC; 97110-TC; 97116-TC; 97530-TC; C9803; G0378; J0885; J1100; J1815; J2405; J3490; J7030; P9016